=== PATIENT | female | born 1990 | race Caucasian/White ===

== ENCOUNTER 2019-12-18 12:46 | Emergency (ER) | payer SELFPAY ==
[~2019-12-18] VITALS: Ht 162.6 cm; Wt 81.6 kg
--- NOTE | 2019-12-18 12:50 | NUR ---
PT TO ER BED 10
[2019-12-18 12:57] VITALS: BP 112/69
--- NOTE | 2019-12-18 13:04 | NUR ---
c/o sudden onset of pain to right shoudler with right 1st digit involuntary movemment---denies recent injury +2 radial pulse <3 sec cap refill
--- NOTE | 2019-12-18 14:03 | NUR ---
Patient discharged with v/s stable. Written and verbal after care instructions given and explained. Patient verbalized understanding. Ambulatory with steady gait. All questions addressed prior to discharge. Advised to follow up with PMD.
[2019-12-18 14:04] VITALS: BP 117/63
== END 2019-12-18 14:03 | disposition home or self-care (01) ==
LOC: MED 12:46
DX: M62.830 Muscle spasm of back (principal); R78.9 Finding of unspecified substance, not normally found in blood; J45.909 Unspecified asthma, uncomplicated; X50.0XXA Overexertion from strenuous movement or load, initial encounter; Y93.89 Activity, other specified; Y92.89 Other specified places as the place of occurrence of the external cause; Y99.8 Other external cause status
CPT/HCPCS: 93005; 99283